=== PATIENT | male | born 1970 | race Caucasian/White ===

== ENCOUNTER → 2017-07-22 18:52 | Outpatient (CLI) | payer OTHER, MEDICAID, SELFPAY ==
--- NOTE | 2017-07-22 18:54 | DI.MRI.S_ITS ---
PROCEDURE: MR CERVICAL SPINE WO CON INDICATIONS: CERVICAL REGION RADICULOPATHY TECHNIQUE: Noncontrast sagittal T1 spin echo and T2 fast spin echo, sagittal STIR, foraminal oblique sagittal T2 fast spin echo, and axial gradient echo or T2 fast spin echo through the cervical spine. COMPARISON: None. FINDINGS: Image quality: Excellent. Alignment and Curvature: There is normal bony alignment. Bone Marrow: Marrow demonstrates normal overall signal. Spinal Cord: Visualized spinal cord has normal size and signal. No cerebellar tonsillar herniation. Paraspinous Soft Tissues: No paravertebral masses. Prevertebral soft tissues are normal in thickness. C2-C3: Normal appearance. C3-C4: Normal appearance. C4-C5: Mild loss of disc height and disc desiccation. There is posterior disc bulge and disc osteophyte complex. Bilateral uncovertebral hypertrophy and facet arthropathy. The central canal is mildly narrowed. There is moderate bilateral foraminal stenosis. C5-C6: Mild loss of disc height and disc desiccation. There is broad posterior disc bulge. Bilateral uncovertebral hypertrophy. The central canal is patent. There is moderate bilateral foraminal stenosis. C6-C7: Mild loss of disc height and disc desiccation. There is broad posterior disc bulge and a disc osteophyte complex. Bilateral uncovertebral hypertrophy. The central canal is mildly narrowed. There is severe left and moderate right foraminal stenosis. C7-T1: Normal appearance. IMPRESSION: 1. Multilevel degenerative disc disease and facet arthropathy as described. 2. Mild central canal stenosis at C4-C5 and C6-C7. 3. Multilevel foraminal stenoses, severe at C6-C7 on the left and moderate C4-C5 bilaterally, C5-C6 bilaterally and C6-C7 on the right. Dictated by: Merna Anthony M.D. on 07/22/2017 at 22:23 Approved by: Merna Anthony M.D. on 07/23/2017 at 9:58
== END ==
PROVIDERS: PCP Preventive Medicine Occupational Medicine; Visit Provider Orthopaedic Surgery
DX: M50.30 Other cervical disc degeneration, unspecified cervical region (principal); M48.02 Spinal stenosis, cervical region; M47.812 Spondylosis without myelopathy or radiculopathy, cervical region; M99.71 Connective tissue and disc stenosis of intervertebral foramina of cervical region
CPT/HCPCS: 72141